=== PATIENT | male | born 1965 | race Caucasian/White ===

== ENCOUNTER 2021-03-01 16:41 | Emergency (ER) | payer OTHER | END 2021-03-01 20:52 | disposition home or self-care (01) | LOC: ER1 16:41 | DX: J44.1 Chronic obstructive pulmonary disease with (acute) exacerbation (principal); E11.9 Type 2 diabetes mellitus without complications; F17.200 Nicotine dependence, unspecified, uncomplicated | CPT/HCPCS: 36600; 71045; 82803; 82805; 93005; 94664; 94760; 96374; 99285; J2930 ==

== ENCOUNTER 2021-05-10 15:40 | Emergency (ER) | payer OTHER ==
[2021-05-10 18:16] LABS: HEMOGLOBIN 15.7 gm/dl (14.0-17.5); RED BLOOD COUNT 4.96 M/UL (4.20-5.50); WHITE BLOOD COUNT 8.7 K/UL (4.5-11.0)
[2021-05-10 18:39] LABS: BUN/CREATININE RATIO 25 (0-10)
== END 2021-05-11 | disposition home or self-care (01) ==
LOC: ER1 15:40
PROVIDERS: Physician Assistant
DX: M54.2 Cervicalgia (principal); I10 Essential (primary) hypertension; J44.9 Chronic obstructive pulmonary disease, unspecified; F17.200 Nicotine dependence, unspecified, uncomplicated; Z86.73 Personal history of transient ischemic attack (TIA), and cerebral infarction without residual deficits; Z90.49 Acquired absence of other specified parts of digestive tract
CPT/HCPCS: 72125; 80053; 82550; 82553; 83874; 84484; 85025; 93005; 99284

== ENCOUNTER 2021-05-29 16:03 | Emergency (ER) | payer OTHER ==
[2021-05-29 17:09] LABS: HEMOGLOBIN 14.6 gm/dl (14.0-17.5); RED BLOOD COUNT 4.79 M/UL (4.20-5.50); WHITE BLOOD COUNT 9.3 K/UL (4.5-11.0)
[2021-05-29 18:10] LABS: BUN/CREATININE RATIO 28 (0-10)
== END 2021-05-30 00:15 | disposition left against medical advice (07) ==
LOC: ER1 16:03 → CDU 23:01 → ER1 23:01 → CDU 05-30 00:15
PROVIDERS: Emergency Medicine
DX: R07.89 Other chest pain (principal); E11.9 Type 2 diabetes mellitus without complications; E78.5 Hyperlipidemia, unspecified; I10 Essential (primary) hypertension; J44.9 Chronic obstructive pulmonary disease, unspecified; F17.200 Nicotine dependence, unspecified, uncomplicated; Z90.49 Acquired absence of other specified parts of digestive tract; Z90.89 Acquired absence of other organs; Z88.0 Allergy status to penicillin
CPT/HCPCS: 71045; 80053; 82550; 82553; 83874; 84484; 85025; 93005; 99285

== ENCOUNTER 2021-07-13 18:36 | Observation (INO) | payer OTHER ==
[~2021-07-13] VITALS: Ht 170.2 cm; Wt 92.5 kg
[2021-07-13 21:03] LABS: HEMOGLOBIN 14.7 gm/dl (14.0-17.5); RED BLOOD COUNT 4.5 M/UL (4.20-5.50); WHITE BLOOD COUNT 9.5 K/UL (4.5-11.0)
[2021-07-13 21:23] LABS: BUN/CREATININE RATIO 30 (0-10)
[2021-07-14] MEDS ORDERED: AMLODIPINE BESYL5 MG PO (00:20)
[2021-07-14] MEDS ORDERED: PLAVIX75 MG PO (00:20)
[2021-07-14] MEDS ORDERED: RANOLAZINE ER500 MG PO (00:21)
[2021-07-14] MEDS ORDERED: ISOSORBIDE MONO30 MG PO (00:22)
[2021-07-14] MEDS ORDERED: METOPROLOL SUCC50 MG PO (00:22)
[2021-07-14] MEDS ORDERED: TRAZODONE HCL50 MG PO (00:23)
[2021-07-14] MEDS ORDERED: VALSARTAN80 MG PO (00:23)
[2021-07-14] MEDS ORDERED: COREG12.5 MG PO (00:24)
[2021-07-14] MEDS ORDERED: ADULT LOW DOSE81 MG PO (00:25)
[2021-07-14] MEDS ORDERED: PROTONIX40 MG PO (00:26)
[2021-07-14] MEDS ORDERED: ZYRTEC10 M3 PO (00:26)
[2021-07-14] MEDS ORDERED: IBUPROFEN800 MG PO (00:27)
[2021-07-14] MEDS ORDERED: OMEPRAZOLE40 MG PO (00:27)
[2021-07-14] MEDS ORDERED: LIPITOR80 MG PO (00:28)
[2021-07-14] MEDS ORDERED: NITROSTAT 0.40.4 MG SL (00:30)
[2021-07-14] MEDS ORDERED: VENTOLIN/PROVE0.5 ML INH (00:31)
[2021-07-14] MEDS ORDERED: COMBIVENT RESPIM4 GM INH ×2 (00:32→00:33)
--- NOTE | 2021-07-14 01:35 | NUR ---
0100- ENTERED PATIENTS ROOM TO ADMINISTER NICOTINE PATCH. PATIENT ASKED WHERE THE REST OF HIS MEDICATION WAS. I STATED THIS IS ALL THAT IS SCHEDULED AT THE MOMENT. PATIENT STATED I HAVE NOT HAD ANY OF MY MEDICATION. I ASKED PATIENT IF THERE WAS SOMETHING SPECIFIC THAT HE TAKES, THAT HE WAS NEEDING. THAT IS WHEN THE PATIENT STARTED YELLING AT ME AND BEING RUDE, STATING THAT HE WASN'T TAKING ANYTHING ELSE FROM HERE ON OUT. HE THEN BEGAN TO TELL ME THAT HE TAKES ALL OF HIS DAILY MEDICATION AT 9:00 AT NIGHT. I STATED TO HIM TO LET ME CALL THE DOCTOR AND MAKE SURE IT WAS OK TO GO AHEAD AND GIVE YOU YOUR NIGHT TIME MEDICATION NOW. HE SAID, "NO FORGET IT", I ASKED HIM WHY HE DIDN'T WANT TO TAKE HIS MEDICATION, HE THEN REFUED TO TALK TO ME. I CAME OUT TO MY COMPUTER TO LOOK AT THE PATIENTS MEDICATIONS, I THEN WHEN BACK INTO HIS ROOM AND STATED, "HELP ME, HELP YOU TO GET YOUR MEDICATION BACK ON TRACK, HELP ME FIGURE OUT WHEN YOU TAKE YOUR MEDICAITON AT HOME, AND WE CAN GET YOU BACK ON SCHEDULE" I EDUCATED THE PATIENT IN DEPTH ABOUT THE IMPORTANCE OF TAKING HIS BLOOD PRESSURE MEDICATION APPROPRIATELY. THE PATIENT STATED, "FORGET IT, IM LEAVING. CN NOTIFIED OF INCIDENT, [employer] MANAG[employer] ASSOCIATE NOTIFED, AND DR FERRERA NOTFIED.
== END 2021-07-14 01:35 | disposition left against medical advice (07) ==
LOC: ER1 18:36 → CDU 21:13 → MED SURG 4 23:56
PROVIDERS: Family Medicine; ADMIT Internal Medicine
DX: G45.9 Transient cerebral ischemic attack, unspecified (principal); I63.9 Cerebral infarction, unspecified; J44.9 Chronic obstructive pulmonary disease, unspecified; I11.0 Hypertensive heart disease with heart failure; I50.32 Chronic diastolic (congestive) heart failure; I25.10 Atherosclerotic heart disease of native coronary artery without angina pectoris; I77.9 Disorder of arteries and arterioles, unspecified; I25.5 Ischemic cardiomyopathy; E66.9 Obesity, unspecified; F17.200 Nicotine dependence, unspecified, uncomplicated; Z20.822 Contact with and (suspected) exposure to COVID-19; Z68.30 Body mass index [BMI] 30.0-30.9, adult; Z90.49 Acquired absence of other specified parts of digestive tract; Z79.899 Other long term (current) drug therapy
CPT/HCPCS: 36415; 70450; 71045; 80053; 80061; 82550; 82553; 82746; 83036; 83874; 84439; 84443; 84484; 85025; 93005; 99285; G0378; U0002

== ENCOUNTER 2021-08-14 10:41 | Emergency (ER) | payer OTHER ==
[~2021-08-14 10:41] MED LIST: ADULT LOW DOSE81 MG PO; AMLODIPINE BESYL5 MG PO; COMBIVENT RESPIM4 GM INH; COREG12.5 MG PO; IBUPROFEN800 MG PO; ISOSORBIDE MONO30 MG PO; LIPITOR80 MG PO; METOPROLOL SUCC50 MG PO; NITROSTAT 0.40.4 MG SL; OMEPRAZOLE40 MG PO; PLAVIX75 MG PO; PROTONIX40 MG PO; RANOLAZINE ER500 MG PO; TRAZODONE HCL50 MG PO; VALSARTAN80 MG PO; VENTOLIN/PROVE0.5 ML INH; ZYRTEC10 M3 PO
[2021-08-14 11:42] LABS: RED BLOOD COUNT 4.42 M/UL (4.20-5.50); WHITE BLOOD COUNT 8.8 K/UL (4.5-11.0)
[2021-08-14 12:09] LABS: BUN/CREATININE RATIO 22 (0-10)
[2021-08-14] MEDS ORDERED: REGLAN10 MG PO (14:38)
[2021-08-14] MEDS ORDERED: BENADRYL 50MG C50 MG PO (14:38)
== END 2021-08-14 14:45 | disposition home or self-care (01) ==
LOC: ER1 10:41
PROVIDERS: Physician Assistant
DX: I63.231 Cerebral infarction due to unspecified occlusion or stenosis of right carotid arteries (principal); I63.211 Cerebral infarction due to unspecified occlusion or stenosis of right vertebral artery; I63.212 Cerebral infarction due to unspecified occlusion or stenosis of left vertebral artery; M54.2 Cervicalgia; F17.200 Nicotine dependence, unspecified, uncomplicated; I11.9 Hypertensive heart disease without heart failure; E11.9 Type 2 diabetes mellitus without complications; J44.9 Chronic obstructive pulmonary disease, unspecified; E78.5 Hyperlipidemia, unspecified; Z79.82 Long term (current) use of aspirin; Z79.02 Long term (current) use of antithrombotics/antiplatelets; Z88.0 Allergy status to penicillin; Z88.8 Allergy status to other drugs, medicaments and biological substances
CPT/HCPCS: 70470; 70498; 80053; 82550; 82553; 83874; 84484; 85025; 96374; 96375; 99284; J1200; J2765; J7030; Q9967

== ENCOUNTER 2021-10-20 14:00 | Emergency (ER) | payer OTHER ==
[~2021-10-20 14:00] MED LIST changes: +BENADRYL 50MG C50 MG PO; +REGLAN10 MG PO
[2021-10-20 15:56] LABS: HEMOGLOBIN 14.5 gm/dl (14.0-17.5); RED BLOOD COUNT 4.39 M/UL (4.20-5.50); WHITE BLOOD COUNT 7.6 K/UL (4.5-11.0)
[2021-10-20 16:10] LABS: BUN/CREATININE RATIO 28 (0-10)
[2021-10-20] MEDS ORDERED: HYDROCODON-ACE1 EAC4 PO (16:43)
== END 2021-10-20 17:00 | disposition home or self-care (01) ==
LOC: ER1 14:00
PROVIDERS: Emergency Medicine
DX: I73.9 Peripheral vascular disease, unspecified (principal); I25.10 Atherosclerotic heart disease of native coronary artery without angina pectoris; F17.200 Nicotine dependence, unspecified, uncomplicated; Z86.73 Personal history of transient ischemic attack (TIA), and cerebral infarction without residual deficits; Z88.0 Allergy status to penicillin; Z95.5 Presence of coronary angioplasty implant and graft
CPT/HCPCS: 80053; 85025; 85610; 85730; 93925; 99284

== ENCOUNTER 2022-05-05 15:07 | Emergency (ER) | payer OTHER ==
[~2022-05-05 15:07] MED LIST changes: +HYDROCODON-ACE1 EAC4 PO
[2022-05-05 17:25] LABS: HEMOGLOBIN 13.7 gm/dl (14.0-17.5); RED BLOOD COUNT 4.24 M/UL (4.20-5.50); WHITE BLOOD COUNT 9.3 K/UL (4.5-11.0)
[2022-05-05 17:49] LABS: BUN/CREATININE RATIO 30 (0-10)
== END 2022-05-05 21:50 | disposition other institution (70) ==
LOC: ER1 15:07
PROVIDERS: Student in an Organized Health Care Education/Training Program
DX: T58.01XA Toxic effect of carbon monoxide from motor vehicle exhaust, accidental (unintentional), initial encounter (principal); R07.9 Chest pain, unspecified; R06.02 Shortness of breath; J44.9 Chronic obstructive pulmonary disease, unspecified; F17.210 Nicotine dependence, cigarettes, uncomplicated; Z86.73 Personal history of transient ischemic attack (TIA), and cerebral infarction without residual deficits; Z95.1 Presence of aortocoronary bypass graft; Z88.0 Allergy status to penicillin; Z91.048 Other nonmedicinal substance allergy status; Z20.822 Contact with and (suspected) exposure to COVID-19
CPT/HCPCS: 0240U; 36600; 71045; 80053; 81001; 82550; 82553; 82805; 83880; 84484; 85025; 85610; 85730; 93005; 96360; 96361; 99285